=== PATIENT | male | born 1965 | race Caucasian/White ===

== ENCOUNTER 2021-04-16 14:36 | Emergency (ER) | payer MEDICARE, OTHER ==
[2021-04-16 14:48] VITALS: BP 120/86; PULSE 101; TEMP 98.3; BMI 30.1
== END 2021-04-16 18:00 | disposition home or self-care (01) ==
LOC: FER 14:36
DX: Z45.02 Encounter for adjustment and management of automatic implantable cardiac defibrillator (principal)
CPT/HCPCS: 71045-TC-FY; 99283-25

== ENCOUNTER 2021-11-07 18:50 | Emergency (ER) | payer OTHER ==
[2021-11-07 19:29] VITALS: TEMP 97.8; BMI 29.7
[2021-11-07 20:26] LABS: ALBUMIN 3.9 g/dl (3.4-5.0); BILIRUBIN,TOTAL 0.7 mg/dl (0.2-1); CALCIUM 9.6 mg/dl (8.5-10); CREATININE 0.9 mg/dl (0.55-1.3); TOT PROT 7.1 g/dl (6.4-8.2)
[2021-11-07 21:36] VITALS: BP 120/72; PULSE 78
[2021-11-07 21:37] LABS: BASO % 0.6 % (0-2.0); EOS % 2.3 % (0-4.5); HEMATOCRIT 47.4 % (35.4-49); HEMOGLOBIN 16.7 GM/dL (11.7-16.9); LYMPH % 31.2 % (8-40); MCH 31.2 pg (25.7-33.7); MCHC 35.2 g/dl (32.0-35.9); MEAN CELL VOLUME 88.7 fl (80-96); MEAN PLT VOLUME 9.2 fl (7.5-11.1); NEUT % 58.9 % (42.8-82.8); PLATELET COUNT 189 10^3/uL (134-434); RBC 5.34 M/mm3 (4.00-5.60); RDW 13.3 % (11.9-15.9); WHITE BLOOD COUNT 7.5 K/mm3 (4.0-10.0)
== END 2021-11-07 22:04 | disposition home or self-care (01) ==
LOC: FER 18:50 → SUPCPDRO 18:50 → FER 22:04
DX: R07.89 Other chest pain (principal)
CPT/HCPCS: 36415; 80053; 82550; 84484; 85025; 93005; 99284-25

== ENCOUNTER 2022-09-22 17:40 | Emergency (ER) | payer OTHER ==
[2022-09-22] MEDS ORDERED: SODIUM CHLORIDE 0.9% 1000 ML INFUS.BAG IV ONE (17:51)
[2022-09-22] MEDS ORDERED: FAMOTIDINE 20 MG/50 ML IVPB 20 MG/50 ML MG IVPB ONE ×2 (17:51→18:31)
[2022-09-22] MEDS ORDERED: ACETAMINOPHEN 1000 MG/100 ML BAG IVPB ONE (17:51)
[2022-09-22] MEDS ORDERED: ACETAMINOPHEN INJECTION 100 ML IVPB ONE (18:31)
[2022-09-22 18:58] LABS: HEMATOCRIT 50.3 % (35.4-49); HEMOGLOBIN 17.6 G/dL (11.7-16.9); MCH 31.2 pg (25.7-33.7); MCHC 34.9 g/dl (32.0-35.9); MEAN CELL VOLUME 89.1 fl (80-96); MEAN PLT VOLUME 8.8 fl (7.5-11.1); RBC 5.64 10^6/uL (4.00-5.60); RDW 13.1 % (11.9-15.9); WHITE BLOOD COUNT 6.8 10^3/uL (4.0-10.8)
[2022-09-22 19:02] LABS: INR 1.09 (0.83-1.09); PROTHROMBIN TIME (PATIENT) 12.5 SEC (9.7-13.0)
[2022-09-22 19:16] VITALS: PULSE 83; RESP 20; TEMP 98.2; BMI 31.8
[2022-09-22 19:20] LABS: ALBUMIN 3.7 g/dl (3.4-5.0); BILIRUBIN,TOTAL 0.7 mg/dl (0.2-1); CREATININE 0.9 mg/dl (0.55-1.3); TOT PROT 6.5 g/dl (6.4-8.2)
[2022-09-22 19:33] LABS: PLATELET ESTIMATE ADEQUATE
[2022-09-22 19:51] LABS: ACTIVATED PTT 31.4 SECONDS (25.2-36.5)
[2022-09-22] MEDS ORDERED: PIPERACILLIN/TAZOB 3.375 GM 3.375 GM in DEXTROSE 5%-WATER - 50 ML IVPB ONE (21:29)
[2022-09-22] MEDS ORDERED: PIPERACILLIN/TAZOBACTAM 3.375 GM VIAL IVPB ONE (21:40)
[2022-09-22] MEDS ORDERED: morphine CARPU-JECT 4 MG/1 ML DISP.SYRIN IVPUSH ONE (23:05)
[2022-09-22] MEDS ORDERED: morphine SULFATE 4 MG/ML VIAL ONE (23:07)
[2022-09-22 23:14] VITALS: BP 140/98
== END 2022-09-22 23:31 | disposition home or self-care (01) ==
LOC: FER 17:40
PROC: 3E033GC Introduction of Other Therapeutic Substance into Peripheral Vein, Percutaneous Approach (ICD-10-PCS; principal; 2022-09-22)
DX: K57.92 Diverticulitis of intestine, part unspecified, without perforation or abscess without bleeding (principal)
CPT/HCPCS: 0241U-QW; 36415; 74177-TC; 80053; 81003; 85027; 85610; 85730; 99285-25; Q9967